=== PATIENT | female | born 1960 | race Two or more races ===

== ENCOUNTER → 2017-05-21 | Outpatient (CLI) | payer MEDICARE ==
[~2017-05-21] MED LIST: ANAS1TAB3 PO; FLUO10CA13 PO; LIDOCAINE 1%, 20ML ONE; LISI-170 PO; METF500T27 PO; VIT D
== END | disposition home or self-care (01) ==
LOC: RAD 13:00
PROVIDERS: ATTEND Internal Medicine Hematology & Oncology
DX: R59.0 Localized enlarged lymph nodes (principal); Z85.3 Personal history of malignant neoplasm of breast
CPT/HCPCS: 76536; 76942; 88305; J3490; 88184; 88185

== ENCOUNTER 2017-06-09 06:21 | Day surgery (SDC) | payer MEDICARE ==
[~2017-06-09] VITALS: Ht 157.5 cm; Wt 86.5 kg
[~2017-06-09 06:21] MED LIST changes: -LIDOCAINE 1%, 20ML ONE
[2017-06-09] MEDS ORDERED: SODIUM CHLORIDE 0.9% 1,000 ML IV SCH (07:00)
[2017-06-09] MEDS ORDERED: CEFAZOLIN PMX 1GM/50ML 50 ML IV ONE (07:00)
[2017-06-09] MEDS ORDERED: GLIP10TA13 PO (07:07)
[2017-06-09] MEDS ORDERED: RANITIDINE PO (07:09)
[2017-06-09] MEDS ORDERED: OMEPRAZOLE PO (07:09)
[2017-06-09] MEDS ORDERED: ASPI-496 PO (07:09)
[2017-06-09 07:10] VITALS: BP 154/88
[2017-06-09] MEDS ORDERED: LIDOCAINE 1%, 20ML ONE (08:59)
[2017-06-09] MEDS ORDERED: NALOXONE 1 MG/ML, 2ML ONE (09:18)
[2017-06-09] MEDS ORDERED: FLUMAZENIL 0.1 MG/1 ML, 5ML ONE (09:18)
[2017-06-09] MEDS ORDERED: MIDAZOLAM 1 MG/ML, 5ML ONE (09:18)
[2017-06-09] MEDS ORDERED: FENTANYL PF 100 MCG/2ML ONE (09:18)
[2017-06-09] MEDS ORDERED: HYDROcodone/APAP 5/325 TABLET PO ONE (11:30)
[2017-06-09] MEDS ORDERED: HYDROcodone/APAP 5/325 TABLET ONE (11:34)
== END 2017-06-09 12:40 ==
LOC: OUT 06:21
PROVIDERS: ATTEND Internal Medicine Hematology & Oncology
DX: Z45.2 Encounter for adjustment and management of vascular access device (principal); C50.912 Malignant neoplasm of unspecified site of left female breast; C50.911 Malignant neoplasm of unspecified site of right female breast; I51.7 Cardiomegaly; E11.9 Type 2 diabetes mellitus without complications; K21.9 Gastro-esophageal reflux disease without esophagitis; E78.5 Hyperlipidemia, unspecified; I10 Essential (primary) hypertension; F32.9 Major depressive disorder, single episode, unspecified; G47.30 Sleep apnea, unspecified; Z98.890 Other specified postprocedural states; Z90.13 Acquired absence of bilateral breasts and nipples; Z90.49 Acquired absence of other specified parts of digestive tract
CPT/HCPCS: 36561; 76937; 77001; 93306; 99156; 99157; C1788; J0690; J1642; J2250; J3010; J3490; J7030; J2310

== ENCOUNTER → 2017-06-12 | Outpatient (CLI) | payer MEDICARE ==
[~2017-06-12] MED LIST changes: +ASPI-496 PO; +GADOBUTROL 10 MMOL/10 ML PFS ONE; +GLIP10TA13 PO; +OMEPRAZOLE PO; +RANITIDINE PO
== END | disposition home or self-care (01) ==
LOC: CFH 09:43
PROVIDERS: ATTEND Internal Medicine Hematology & Oncology
DX: G31.9 Degenerative disease of nervous system, unspecified (principal); C50.919 Malignant neoplasm of unspecified site of unspecified female breast
CPT/HCPCS: 70553; A9585